=== PATIENT | female | born 1970 ===

== ENCOUNTER 2018-10-01 13:47 | Emergency (ER) | payer BC ==
[~2018-10-01] VITALS: Ht 157.5 cm; Wt 59.0 kg
[2018-10-01] MEDS ORDERED: ASPI81TA31 PO (13:55)
[2018-10-01] MEDS ORDERED: LEVO50TA8 PO (13:55)
--- NOTE | 2018-10-01 14:00 | NUR ---
PT DECIDED TO LEAVE THE ER. PT SAYS THAT THEY PLANNED TO GO TO [facility] BUT THE GOOGLE ADDRESS GAVE THE ADDRESS TO HERE. PT ACCOMPANIED BY SON. PT WAS TOLD THAT THIS WOULD BE AMA. THEY ACCEPTED BUT LEFT BEFORE SIGNING THE AMA PAPER WORK.A COPY OF EKG GIVEN TO PT.
== END 2018-10-01 14:00 | disposition left against medical advice (07) ==
LOC: ER 13:48
DX: R07.9 Chest pain, unspecified (principal); I48.91 Unspecified atrial fibrillation; E03.9 Hypothyroidism, unspecified; Z79.82 Long term (current) use of aspirin
CPT/HCPCS: 93005; A4663